=== PATIENT | female | born 1965 | race Caucasian/White ===

== ENCOUNTER 2018-05-22 06:38 | Day surgery (SDC) | payer OTHER ==
[2018-05-22] MEDS: SOD CHLORIDE 0.9% 1,000 ML IV (06:00)
[2018-05-22] MEDS ORDERED: GLYCOPYRROLATE 0.4 MG INJ (07:00)
[2018-05-22] MEDS ORDERED: NEOSTIGMINE 3 MG/3 ML SYRINGE (07:00)
[2018-05-22] MEDS ORDERED: MIDAZOLAM 1 MG/ML 2 ML INJ (09:39)
[2018-05-22] MEDS: BUPIVACAINE 0.25% (MPF) 30 ML INJ (10:04)
[2018-05-22] MEDS ORDERED: ONDANSETRON 4 MG INJ (10:15)
[2018-05-22] MEDS ORDERED: KETOROLAC 30 MG INJ (10:16)
[2018-05-22] MEDS ORDERED: ROCURONIUM 50 MG INJ (10:20)
[2018-05-22] MEDS ORDERED: LIDOCAINE 2% (SDV) 5 ML INJ (10:20)
[2018-05-22] MEDS ORDERED: PROPOFOL 20 ML (10:20)
[2018-05-22] MEDS ORDERED: CEFAZOLIN 1 GM INJ (10:21)
[2018-05-22] MEDS ORDERED: MEPERIDINE 25 MG INJ IV (10:30)
[2018-05-22] MEDS ORDERED: FENTAnyl 50 MCG/ML VIAL IV (10:30)
[2018-05-22] MEDS: CEFAZOLIN 2 GM/50 ML (PMX) 50 ML IVPB (10:35)
[2018-05-22] MEDS: DIPHENHYDRAMINE 50 MG INJ IV (10:51)
[2018-05-22] MEDS: HYDROmorphONE 1 MG/5 ML IV SYRINGE IV ×3 (10:51→11:05)
[2018-05-22] MEDS: HYDROCODONE/APAP (5/325) TAB PO (11:06)
[2018-05-22] MEDS: ONDANSETRON 4 MG INJ IV (11:29)
== END 2018-05-22 12:40 | disposition home or self-care (01) ==
LOC: SDS 06:38
DX: K80.10 Calculus of gallbladder with chronic cholecystitis without obstruction (principal)
CPT/HCPCS: 47562; 88304